=== PATIENT | female | born 1930 | race Two or more races ===

== ENCOUNTER 2018-06-06 12:42 | Emergency (ER) | payer OTHER ==
[~2018-06-06] VITALS: Ht 144.8 cm; Wt 45.4 kg
[~2018-06-06 12:42] MED LIST: CATAPRES0.1 MG; COZAAR100 MG; PROTONIX40 MG PO; VITAMIN D-32000 UNIT; ZOCOR40 MG
[2018-06-06] MEDS ORDERED: OMEPRAZOLE20 MG PO (13:09)
[2018-06-06] MEDS ORDERED: ZANTAC300 MG PO (13:09)
[2018-06-06] MEDS ORDERED: DICY20TA PO (13:10)
== END 2018-06-06 20:45 | disposition home or self-care (01) ==
LOC: ER 12:42
DX: K29.60 Other gastritis without bleeding (principal)